=== PATIENT | female | born 1975 | race Caucasian/White ===

== ENCOUNTER 2021-03-16 00:55 | Emergency (ER) | payer MEDICARE, MEDICAID ==
[~2021-03-16] VITALS: Ht 160 cm; Wt 89.0 kg
[2021-03-16 01:11] VITALS: BP 134/87
[2021-03-16 05:22] LABS: CHLORIDE 104 mEq/L (98-107); HCG SCREEN NEGATIVE
[2021-03-16 05:33] LABS: ETHANOL BLOOD < 10 mg/dL
[2021-03-16 05:37] LABS: BASOPHILS % 0.2 % (0.0-2.0); EOSINOPHILS % 0.5 % (0.0-5.0); HEMATOCRIT. 35.4 % (36.0-48.0); HEMOGLOBIN. 11.9 g/dL (12.0-16.0); LYMPHOCYTES % 11.6 % (20.0-50.0); MEAN CORPUSCULAR HEMOGLOBIN 30.3 pg (28.0-32.0); MEAN CORPUSCULAR VOLUME 90.3 fL (81.0-99.0); MEAN PLATELET VOLUME 10.7 fl (7.4-10.4); MONOCYTES % 4.3 % (2.0-8.0); NEUTROPHILS % 83.4 % (40.0-76.0); PLATELET 190 x1000/uL (130-400); RED BLOOD CELL COUNT 3.92 mill/uL (4.2-5.4)
[2021-03-16] MEDS ORDERED: CLINDAMYCIN 600MG PREMIX 50 ML IV NR (05:45)
[2021-03-16] MEDS ORDERED: CLINDAMYCIN 600 MG in DEXTROSE 5% WATER 50 ML IV ONE (05:45)
== END 2021-03-16 05:51 | disposition left against medical advice (07) ==
LOC: ER 00:55
DX: L03.114 Cellulitis of left upper limb (principal); I11.0 Hypertensive heart disease with heart failure; I50.9 Heart failure, unspecified; E11.9 Type 2 diabetes mellitus without complications; Z98.51 Tubal ligation status; Z98.890 Other specified postprocedural states
CPT/HCPCS: 36415; 71045; 80053; 80320; 82962; 83880; 84484; 84703; 85025; 87040; 93005; 99291; J3490; J7060; G0480